=== PATIENT | female | born 1985 | race Two or more races ===

== ENCOUNTER → 2019-12-15 10:08 | Outpatient (BNVA) | payer OTHER, SELFPAY | PROVIDERS: Visit Provider Obstetrics & Gynecology | DX: Z30.432 Encounter for removal of intrauterine contraceptive device (principal) | CPT/HCPCS: 11982; 11983; 81025 ==

== ENCOUNTER 2020-04-28 19:08 | Emergency (ER) | payer OTHER, SELFPAY ==
[2020-04-28 19:13] VITALS: BP 138/91; PULSE 88; RESP 16; TEMP 36.8; O2SAT 98; BMI 28.8
[2020-04-28 20:00] VITALS: BP 127/82; PULSE 87; RESP 17; TEMP 36.9; O2SAT 99
--- NOTE | 2020-04-28 20:21 | ED.FEMALEGU ---
HPI - Female Genitourinary General Chief complaint: Vaginal Bleeding Stated complaint: Vaginal bleeding Time Seen by Provider: 04/28/20 20:10 Source: patient Mode of arrival: ambulatory Limitations: language barrier History of Present Illness HPI Narrative: 35-year-old female with past medical history of ectopic presents with abnormal vaginal bleeding and lower abdominal cramping consistent with prior ectopic. She does have a Nexplanon, stated the bleeding started several days ago, she has been going through several tampons and pads per hour over the past 2 days. She does not report any dizziness, loss of balance, chest pain or pressure, palpitations, shortness of breath, diaphoresis, fevers, chills, or edema. She does not report any trauma, or sexual assault. States to be in a monogamous healthy relationship with her and has a 3-year-old child. MD elicited complaint: vaginal bleeding and pelvic pain Pertinent past history: ectopic Onset (ago): day(s) Location of symptoms: suprapubic Severity: moderate Severity scale (1-10): 7 Quality of pain: cramping and aching Consistency: intermittent Vaginal discharge: none Vaginal bleeding: heavy, dark red and clots Associated symptoms: denies other symptoms Treatment prior to arrival: none Sexual activity: Yes Patient : No Related Data : 2 Para: 1 Home Medications Medication Instructions Recorded Confirmed etonogestrel 68 mg subdermal SUBDERMAL 12/15/19 implant Allergies Allergy/AdvReac Type Severity Reaction Status Date / Time No Known Allergies Allergy Verified 04/28/20 19:13 Review of Systems Review of Systems: Constitutional: No Fever, No Chills ENT/Mouth: No sore throat, No Rhinorrhea Eyes: No Eye Pain, No Redness Cardiovascular: No Chest Pain, No SOB Respiratory: No Cough, No Sputum, No Wheezing Gastrointestinal: positive Nausea, No Vomiting, No Diarrhea, positive abdominal pain, Genitourinary: positive irregular bleeding, No Dysuria, No Urinary Frequency, positive pelvic pain Musculoskeletal: No Myalgias Skin: No rash Neuro: No Weakness, No Headache Psych: No Anxiety/Panic, No Depression Heme/Lymph: No bruising, No Lymphadenopathy Endocrine: No Polyuria, No Polydipsia Yes all other systems are reviewed and are negative PMFSH Past Medical History Medical History Anemia during Gestational diabetes with history of ectopic Surgical History History of : 2 Para: 1 Social History Social History Alcohol intake: never Smoking Status: Never smoker Advance Directives: No Advance Directives Information Provided: Yes Sexual orientation: Straight/Heterosexual Gender identity: female Physical Exam Vital Signs: Vital Signs: Last Vital Signs Temp 98.2 F 04/28/20 22:00 Pulse 87 04/28/20 22:00 Resp 16 04/28/20 22:00 BP 133/88 04/28/20 22:00 Pulse Ox 99 04/28/20 22:00 Body Mass Index 28.8 Appearance: Alert. Oriented X3. No acute distress. Eyes: Pupils equal, round and reactive to light. ENT: Pharynx normal. Neck: Normal inspection. Neck supple. CVS: Normal heart rate and rhythm. Pulses normal. Respiratory: No respiratory distress. Breath sounds normal. Abdomen: Soft and nontender. Skin: Skin warm and dry. Normal skin color. Normal skin turgor. Extremities: No lower extremity edema. Neuro: No motor deficit. No sensory deficit. : General: Yes Bimanual renal exam normal bilaterally External Female Exam: normal external appearance and normal appearance of the urethra Speculum Exam - Vagina: normal appearance of the vagina and normal palpation Speculum Exam - Cervix: normal appearance of the cervix, normal palpation and nontender Bimanual exam- vagina & uterus: normal bimanual exam, normal palpation, consistency normal, normal palpation, uterine mobility normal, No Cervical tenderness present, tender and no cervical motion tenderness Bimanual Exam- Adnexa, other: normal adnexae, no masses and No adnexal tenderness Course Course Course Narrative: 35-year-old female presents with abnormal vaginal bleeding. Has a history of ectopic and her presentation feels quite similar to that prior experience. Plan of care is for CBC, Chem 7, urinalysis and test. 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 Os appears nulliparous as patient did have a . Plan of care is to discharge home and have patient follow-up with her hat sizer or provider that prescribed to the Nexplanon as she may need alternative control method. local company hazmat driver utilized for all correspondence, Google translate utilized for discharge instructions. MDM - Female Genitourinary MDM Narrative Medical decision making narrative: Dysfunctional uterine bleeding, ectopic Differential Diagnosis Differential diagnosis: Likely cervicitis and dysmenorrhea Medical Records Attestation: I reviewed the patient's medical records. Lab Data Attestation: I reviewed the patient's lab results. Result diagrams: 04/28/20 20:48 04/28/20 20:48 Labs: Lab Results 04/28/20 04/28/20 04/28/20 Range/Units 20:48 20:48 20:48 WBC 10.2 (4.8-10.8) X10*3/uL RBC 4.51 (4.20-5.50) X10*6/uL Hgb 13.0 (12.0-16.0) g/dl Hct 39.8 (37-47) % MCV 88.2 (80-98) fL MCH 28.8 (27.0-33.0) pg MCHC 32.7 (31.0-35.0) g/dl RDW 13.3 (11.0-16.0) % Plt Count 315 (160-400) X10*3/uL MPV 11.1 (9.4-12.3) fL Immature Gran % (Auto) 0.2 (0.0-0.4) % Neut % (Auto) 57.0 (45-73) % Lymph % (Auto) 33.8 (20-40) % [place] % (Auto) 6.4 (2-11) % Eos % (Auto) 2.2 (0-4) % Baso % (Auto) 0.4 (0-2) % Lymph # (Auto) 3.4 (1.2-4.9) X10*3/uL [place] # (Auto) 0.7 (0.1-1.2) X10*3/uL Eos # (Auto) 0.2 (0.0-0.4) X10*3/uL Baso # (Auto) 0.0 (0.0-0.2) X10*3/uL Abs Immat Gran (auto) 0.02 (0.00-0.03) X10*3/uL Absolute Neuts (auto) 5.8 (2.0-8.3) X10*3/uL Absolute Nucleated RBC 0.000 (0.0-0.012) X10*3/uL Nucleated RBC % (auto) 0.0 (0.0-0.2) /100WBC Sodium 137 (135-145) mmol/L Potassium 3.7 (3.3-5.1) mmol/L Chloride 105 (96-108) mmol/L Carbon Dioxide 25 (22-29) mmol/L Anion Gap 11 L (12-20) BUN 13 (9-16) mg/dL Creatinine 0.74 (0.5-1.4) mg/dL Estim Creat Clear Calc 92.7 Estimated GFR > 60 Random Glucose 110 (60-115) mg/dL Calcium 9.2 (8.4-10.2) mg/dL Urine Color YELLOW Urine Appearance CLEAR Urine pH 6.0 (5.0-8.0) Ur Specific [place] 1.020 (1.005-1.025) Urine Protein NEG (NEG-TRACE) MG/DL Urine Glucose (UA) NEG (NEG) MG/DL Urine Ketones NEG (NEG) MG/DL Urine Blood 3+ H (NEG) Urine Nitrite NEG (NEG) Ur Leukocyte Esterase NEG (NEG) Urine RBC 5-9 H (0) /HPF Urine WBC 0 (0-4) /HPF Ur Squamous Epith Cells 1+ /LPF Urine Bacteria 1+ /LPF Urine Test (NEGATIVE) 04/28/20 Range/Units 20:48 WBC (4.8-10.8) X10*3/uL RBC (4.20-5.50) X10*6/uL Hgb (12.0-16.0) g/dl Hct (37-47) % MCV (80-98) fL MCH (27.0-33.0) pg MCHC (31.0-35.0) g/dl RDW (11.0-16.0) % Plt Count (160-400) X10*3/uL MPV (9.4-12.3) fL Immature Gran % (Auto) (0.0-0.4) % Neut % (Auto) (45-73) % Lymph % (Auto) (20-40) % [place] % (Auto) (2-11) % Eos % (Auto) (0-4) % Baso % (Auto) (0-2) % Lymph # (Auto) (1.2-4.9) X10*3/uL [place] # (Auto) (0.1-1.2) X10*3/uL Eos # (Auto) (0.0-0.4) X10*3/uL Baso # (Auto) (0.0-0.2) X10*3/uL Abs Immat Gran (auto) (0.00-0.03) X10*3/uL Absolute Neuts (auto) (2.0-8.3) X10*3/uL Absolute Nucleated RBC (0.0-0.012) X10*3/uL Nucleated RBC % (auto) (0.0-0.2) /100WBC Sodium (135-145) mmol/L Potassium (3.3-5.1) mmol/L Chloride (96-108) mmol/L Carbon Dioxide (22-29) mmol/L Anion Gap (12-20) BUN (9-16) mg/dL Creatinine (0.5-1.4) mg/dL Estim Creat Clear Calc Estimated GFR Random Glucose (60-115) mg/dL Calcium (8.4-10.2) mg/dL Urine Color Urine Appearance Urine pH (5.0-8.0) Ur Specific [place] (1.005-1.025) Urine Protein (NEG-TRACE) MG/DL Urine Glucose (UA) (NEG) MG/DL Urine Ketones (NEG) MG/DL Urine Blood (NEG) Urine Nitrite (NEG) Ur Leukocyte Esterase (NEG) Urine RBC (0) /HPF Urine WBC (0-4) /HPF Ur Squamous Epith Cells /LPF Urine Bacteria /LPF Urine Test NEGATIVE (NEGATIVE) Discharge Plan Discharge Clinical Impression: Vaginal bleeding, Dysfunctional uterine bleeding Patient Disposition: Home, Self-Care Instructions: Dysfunctional Uterine Bleeding (ED) Additional Instructions: Te evaluaron para detectar sangrado vaginal anormal. La prueba de embarazo es negativa, el examen p?lvico fue normal. Por favor, haley un seguimiento con OBGYN o quien recet? el Nexplanon para un mayor trabajo. Jonathan por elegir triny departamento de emergencias para rangel evaluaci?n. Por favor, haley un seguimiento con el m?dico de atenci?n primaria seg?n sea necesario. Regrese al servicio de emergencias para cualquier s?ntoma nuevo, preocupante o que empeore. You were evaluated for abnormal vaginal bleeding. Your test is negative, pelvic exam was normal. Please follow-up with OBGYN or whoever prescribed the Nexplanon for further workup. Thank you for choosing this emergency department for evaluation. Please follow-up with primary care physician as needed. Return to the emergency department for any new, concerning, or worsening symptoms. Prescriptions: No Action Nexplanon 68 mg implant subdermal RF: 0 Stand Alone Forms: Work/School Release
[2020-04-28 20:56] LABS: MANUAL DIFF FLAG NO
--- NOTE | 2020-04-28 20:57 | PC.NURSE ---
PT PRESENTS WITH REPORTS OF BRIGHT RED VAGINAL BLEEDING AND PELVIC CRAMPING BEGINNING TODAY. HAS NEXPLANON IMPLANTED. DENIES N/V/D. DENIES ACCOMPANYING SYMPTOMS.
[2020-04-28 20:59] LABS: Appearance Urine CLEAR; Color Urine YELLOW; Glucose Urine UA NEG (NEG); Leukocyte Esterase Urine NEG (NEG); Nitrite Urine NEG (NEG); Urine Blood 3+ (NEG); Urine Ketones NEG (NEG); Urine Protein NEG (NEG-TRACE)
[2020-04-28 21:00] LABS: Basophils Percent Auto 0.4 % (0-2); Eosinophils Absolute Auto 0.2 X10*3/uL (0.0-0.4); Eosinophils Percent Auto 2.2 % (0-4); Hematocrit 39.8 % (37-47); Imm Gran Abs Auto 0.02 X10*3/uL (0.00-0.03); Imm Gran Pct Auto 0.2 % (0.0-0.4); Lymphocytes Absolute Auto 3.4 X10*3/uL (1.2-4.9); Lymphocytes Percent Auto 33.8 % (20-40); Mean Corpuscular HGB Conc 32.7 g/dl (31.0-35.0); Mean Corpuscular Hemoglobin 28.8 pg (27.0-33.0); Mean Corpuscular Volume 88.2 fL (80-98); Mean Platelet Volume 11.1 fL (9.4-12.3); Monocytes Absolute Auto 0.7 X10*3/uL (0.1-1.2); Monocytes Percent Auto 6.4 % (2-11); Neutrophils Absolute Auto 5.8 X10*3/uL (2.0-8.3); Platelet Count 315 X10*3/uL (160-400); Red Blood Count 4.51 X10*6/uL (4.20-5.50); Red Cell Distribution Width 13.3 % (11.0-16.0); White Blood Count 10.2 X10*3/uL (4.8-10.8)
[2020-04-28 21:01] LABS: UPreg QC Valid YES; Urine Pregnancy NEGATIVE (NEGATIVE)
[2020-04-28 21:19] LABS: Bacteria Urine 1+ /LPF; Squamous Epithelial Cell Urine 1+ /LPF; WBC Urine 0 /HPF (0-4)
[2020-04-28 21:23] LABS: Anion Gap 11 (12-20); Blood Urea Nitrogen 13 mg/dL (9-16); Calcium 9.2 mg/dL (8.4-10.2); Carbon Dioxide 25 mmol/L (22-29); Chloride 105 mmol/L (96-108); Creatinine Clr Calc Pharmacy 92.7; Estimated Glomerular Filt Rate > 60; Glucose Random 110 mg/dL (60-115); Potassium 3.7 mmol/L (3.3-5.1); Sodium 137 mmol/L (135-145)
[2020-04-28 22:00] VITALS: BP 133/88; PULSE 87; RESP 16; TEMP 36.8; O2SAT 99
--- NOTE | 2020-04-28 22:16 | PC.NURSE ---
THIS PCT SET UP AND ASSIST VALENTINE FUCHS WITH PATIENT PELVIC EXAM
== END 2020-04-28 23:07 | disposition home or self-care (01) ==
PROVIDERS: Nurse Practitioner Family; Emergency Provider Emergency Medicine Emergency Medical Services; PCP Hospitalist
DX: N93.8 Other specified abnormal uterine and vaginal bleeding (principal); R10.2 Pelvic and perineal pain
CPT/HCPCS: 36415; 80048; 81001; 81003; 81025; 85025; 99284

== ENCOUNTER → 2020-05-02 12:50 | Outpatient (BNVA) | payer OTHER, SELFPAY | PROVIDERS: PCP Hospitalist; Visit Provider Advanced Practice Midwife | DX: Z30.432 Encounter for removal of intrauterine contraceptive device (principal); Z30.011 Encounter for initial prescription of contraceptive pills | CPT/HCPCS: 11982; 99212 ==

== ENCOUNTER 2021-03-28 10:10 | Outpatient (REF) | payer OTHER, SELFPAY ==
[2021-03-28 11:27] LABS: HCG Quantitative < 2 mIU/mL
[2021-03-28 11:37] LABS: Alanine Aminotransferase 20 U/L (0-31); Albumin Level 4.3 g/dL (3.5-5.0); Alkaline Phosphatase 51 U/L (39-117); Anion Gap 10 (12-20); Aspartate Amino Transferase 15 U/L (5-31); Bilirubin Total 0.3 mg/dL (0.0-1.0); Blood Urea Nitrogen 11 mg/dL (9-16); Calcium 9.8 mg/dL (8.4-10.2); Carbon Dioxide 26 mmol/L (22-29); Chloride 106 mmol/L (96-108); Estimated Glomerular Filt Rate > 60; Glucose Random 122 mg/dL (60-115); Lipase 26 U/L (8-78); Potassium 4.3 mmol/L (3.3-5.1); Sodium 138 mmol/L (135-145); Total Protein 7.6 g/dL (6.5-8.0)
[2021-03-28 11:40] LABS: Amylase 70 U/L (28-100)
== END 2021-03-28 10:11 | disposition home or self-care (01) ==
LOC: HO.LAB 10:10
PROVIDERS: PCP Student in an Organized Health Care Education/Training Program; Visit Provider Nurse Practitioner Family
DX: R10.32 Left lower quadrant pain (principal); N92.6 Irregular menstruation, unspecified
CPT/HCPCS: 36415; 80053; 82150; 83690; 84702

== ENCOUNTER 2022-12-03 08:35 | Outpatient (AMB) | payer OTHER, SELFPAY ==
[2022-12-03 08:41] VITALS: BP 126/84; PULSE 88; O2SAT 99; BMI 29.1
--- NOTE | 2022-12-03 08:41 | MHC.PC.OV ---
Vital Signs 12/03/22 08:41 Height 5 ft 1 in Weight 154 lb BMI 29.1 BP 126/84 Blood Pressure Location Lt brachial Position Sitting Pulse 88 Pulse Source Pulse Oximeter Temp Source Skin Pulse Oximetry (%) 99 Oxygen Delivery Method Room Air Intake Visit Reasons: possible high blood pressure Psychological Operations Officer Required: Yes Psychological Operations Officer Language: [place] Allergies No Known Allergies Allergy (Verified 12/03/22 08:59) Medication List - Last Reconciled 12/03/22 by AWAIS Mendoza fluticasone propionate 50 mcg/actuation 1 spray intranasal DAILY levonorgestrel-ethinyl estrad 0.1-20 mg-mcg (Aviane) 1 tab PO DAILY Tobacco use date assessed: 12/03/22 Dental Screening Dental Screen Date: 12/03/22 Did you have a dental visit in the last 12 months?: Yes Did you have a dental problem in the last 6 months where you did not have access to dental care?: No Was dental information given to patient?: Patient has dentist HPI possible high blood pressure HPI Details Patient is a 37-year-old female presents today for an office visit to follow-up on high blood pressure. Patient of Dr. Hartman. Patient reports that 1 month ago she did have physical exam somewhere else in her blood pressure was high, blood pressure is normal in the office today. Patient denies history of high blood pressure in the past. In addition, patient reports that prior to COVID pandemic she was seen rheumatology due to multiple joints pains, she reports possible diagnosis of fibromyalgia although this was diagnosed yet. Patient reports intermittent severe pains in her multiple joints, elbows, wrists, knees, ankles, back. She also reports muscle pains as well. Reports taking Aleve with no much improvement. Interested in rheumatology referral. Also patient has requested refill on control medications, patient will also call gynecology for an appointment in regards to control management. Patient is a [place]-speaking and Lopez was helping with interpretation. [facility] Medical History Fatigue Physical exam Anemia during with history of ectopic Gestational diabetes Surgical History History of Family History Mother Diabetes Father Gallbladder cancer Social History Housing: Apartment Alcohol intake: never Patient Tobacco Use Status: Never used Tobacco e-Cigarette/Vaping Use: Never Used Second Hand Smoke Exposure: No service: No Current occupational status: employed Current occupational exposures/hazards: No Sexual orientation: Straight/Heterosexual Gender identity: Female Cognitive needs: No Hearing needs: No Vision needs: Yes Female Reproductive History Menstrual Age of Menarche: 11 Questionnaire Thrive Questionnaire Date Thrive assessed: 03/28/21 AUDIT C Alcohol Use Questionnaire (AUDIT-C) 1. How often do you have a drink containing alcohol?: Never Total Score: 0 Score Reviewed/Action Taken: No LORNA-7 AMB Questionnaire LORNA-7 Date LORNA - 7 assessed: 06/07/21 Source: Developed by Drs. Maged Christine, Tory Rascon, Ashish Mahmood and colleagues, with an educational [email or web address] from [employer]. Review of Systems Const Denies body aches, Denies chills, Denies fever(s) and Denies headache(s) ENT Denies dizziness, Denies otalgia, Denies headache(s), Denies nasal discharge, Denies sinus pain and Denies sore throat Card Denies chest pain, Denies edema, Denies lightheadedness and Denies dyspnea Resp Denies dyspnea and Denies wheezing GI Denies abdominal pain Denies dysuria Musc Details: Intermittent numbness and tingling in legs Reports as per HPI, Denies myalgias and Reports arthralgias Skin/Breast Denies rash Neuro Denies dizziness and Denies headache(s) Aller/Immun Denies wheezing Physical exam (Primary Care) Vital Signs: Last Vital Signs Pulse 88 12/03/22 08:41 BP 126/84 12/03/22 08:41 Pulse Ox 99 12/03/22 08:41 Oxygen Delivery Method Room Air 12/03/22 08:41 BMI result Body Mass Index 29.1 Tobacco/Smoking Status: Tobacco use Status Tobacco use date assessed 12/03/22 12/03/22 08:46 Patient Tobacco Use Status Never used Tobacco 12/03/22 08:46 e-Cigarette/Vaping Use Never Used 12/03/22 08:46 Thrive Assessment: Date of Thrive Assessment Date Thrive assessed 03/28/21 12/03/22 08:46 Const General: cooperative and no acute distress Orientation/consciousness: patient oriented x3 HENMT Head: Yes normocephalic and Yes atraumatic Mouth: oropharynx normal and moist mucous membranes Throat: Yes posterior oropharynx normal Eyes General: appearance normal, both eyes and all related structures Neck Neck: Yes normal visual inspection, Yes full ROM and Yes no lymphadenopathy Resp Effort & Inspection: normal respiratory effort and able to speak in complete sentences Auscultation: clear to auscultation bilaterally, no crackles, no rales, no rhonchi and no wheezes Cardio Rate: regular rate Rhythm: regular rhythm Heart sounds: S1 normal heart sound present and S2 normal heart sound present GI Auscultation: normal bowel sounds Skin General skin exam: no rashes or lesions noted Neuro General: patient oriented x3 Gait exam (Neuro): Normal gait present Extrem General: Yes full ROM and No edema Results AMB Test Urine AMB Test Urine Negative Last Edit by CHRIS Jhaveri on 12/03/22 09:27 Results Reviewed Results Reviewed: Laboratory Last Values Tst Clinic Negative 12/03/22 09:26 Assessment and Plan Assessment & Plan (1) Polyarthralgia: Code(s): M25.50 - Pain in unspecified joint Plan: Blood work ordered Patient can try [id number] Tylenol 650 mg every 6 hours as needed for pain, she can alternate with Aleve prn Rheumatology referral for an evaluation and treatment, patient was active with rheumatology couple years ago Patient agreed with the plan Orders: Orders Complete Blood Count no Diff Today M25.50 - Pain in unspecified joint Comprehensive Met. Panel Today M25.50 - Pain in unspecified joint Vitamin B12 and Folate Today M25.50 - Pain in unspecified joint TSH reflex Free T4 Today M25.50 - Pain in unspecified joint Vitamin D 25-OH Total Today M25.50 - Pain in unspecified joint AMB HCG Urine Test Today Z30.011 - Encounter for initial prescription of contraceptive pills Referrals Rheumatology Referral M25.50 - Pain in unspecified joint Medications: Refilled levonorgestrel-ethinyl estrad 0.1-20 mg-mcg (Aviane) 1 tab PO DAILY 84 tabs 4RF Coding Level of Care Code Est Pt Level 3 (01014) Diagnoses Polyarthralgia M25.50
== END 2022-12-03 09:21 | disposition home or self-care (01) ==
PROVIDERS: PCP Internal Medicine; Visit Provider Nurse Practitioner Family
DX: M25.50 Pain in unspecified joint (principal); Z30.011 Encounter for initial prescription of contraceptive pills
CPT/HCPCS: 81025; 99213

== ENCOUNTER 2022-12-03 09:27 | Outpatient (REF) | payer OTHER, SELFPAY | END 2022-12-03 09:28 | disposition home or self-care (01) | LOC: HO.LAB 09:27 | PROVIDERS: PCP Internal Medicine; Visit Provider Nurse Practitioner Family | DX: M25.50 Pain in unspecified joint (principal); R53.83 Other fatigue | CPT/HCPCS: 36415; 80053; 82306; 82607; 82746; 84443; 85027 ==

== ENCOUNTER 2024-01-01 12:13 | Outpatient (AMB) | payer OTHER, SELFPAY ==
--- NOTE | 2024-01-01 12:28 | A.OFFPC_ITS ---
Vital Signs 01/01/24 12:29 Height 5 ft 1 in Weight 144 lb BMI 27.2 BP 122/80 Blood Pressure Location Lt brachial Position Sitting Intake Visit Reasons: annual exam Intake Note: Patient here for an Annual Physical Exam Teachers Aide Required: No Accompanied by: Self / Same As Patient Allergies No Known Allergies Allergy (Verified 01/01/24 12:40) Medication List - Last Reconciled 01/01/24 by Sindhu Hoang MD levonorgestrel-ethinyl estrad 0.1-20 mg-mcg (Aviane) 1 tab PO DAILY Tobacco use date assessed: 01/01/24 Dental Screening Dental Screen Date: 01/01/24 Did you have a dental visit in the last 12 months?: No Did you have a dental problem in the last 6 months where you did not have access to dental care?: No Was dental information given to patient?: Patient has dentist HPI HPI Comments History of Present Illness Details This is a 38-year-old female that comes for her physical exam. Mammogram done last year. Pap smear done last year and was normal as per patient. No chest pain or shortness on breath. Declines flu vaccine. Has macu lar hyperpigmented spot in abdomen most likely looks like [id number]-it-syeg spot. Will be referred to Dermatology. [facility] Medical History (Updated 01/01/24 @ 12:49 by Sindhu Hoang MD) Fatigue Physical exam Anemia during with history of ectopic Gestational diabetes Surgical History History of Family History Mother Diabetes Father Gallbladder cancer Social History Housing: Apartment Alcohol intake: never Patient Tobacco Use Status: Never used Tobacco e-Cigarette/Vaping Use: Never Used Second Hand Smoke Exposure: No service: No Current occupational status: employed Current occupational exposures/hazards: No Sexual orientation: Straight/Heterosexual Gender identity: Female Cognitive needs: No Hearing needs: No Vision needs: Yes Female Reproductive History Menstrual Age of Menarche: 11 Questionnaire PHQ-9 Over the last 2 weeks, how often have you been bothered by any of the following problems? 1. Little interest or pleasure in doing things: not at all 2. Feeling down, depressed, or hopeless: not at all 3. Trouble falling or staying asleep, or sleeping too much: not at all 4. Feeling tired or having little energy: not at all 5. Poor appetite or overeating: not at all 6. Feeling bad about yourself - or that you are a failure or have let yourself or your family down: not at all 7. Trouble concentrating on things, such as reading the newspaper or watching television: not at all 8. Moving or speaking so slowly that other people could have noticed. Or the opposite - being so fidgety or restless that you have been moving around a lot more than usual: not at all 9. Thoughts that you would be better off or of hurting yourself in some way: not at all Total score: 0 Depression Screening Interpretation: Negative Depression Screening Done: Yes 31952 - PHQ-9 Billing: Yes Source: Developed by Drs. Maged Christine, Tory Rascon, Ashish Mahmood and colleagues, with an educational kimberlee from [employer]. Thrive Questionnaire Date Thrive assessed: 01/01/24 I am a: Patient What is your living situation today?: I have a steady place to live Within the past 12 months, did the food you bought not last and you didn't have the money to get more?: Never true Within the past 12 months, did you worry whether your food would run out before you got money to buy more?: Never true Do you have trouble paying for medicines?: No Do you have trouble getting transportation to medical appointments?: No Do you have trouble paying your heating and electricity bill?: No Do you have trouble taking care of your child, family member or friend?: No Do you have trouble with day-to-day activities such as bathing, preparing meals, shopping, managing finances, etc.?: No Are you currently unemployed and looking for a job?: No Are you interested in more education?: Yes Please select the resources that you would like help with: Education Currently or been in a relationship where the following occur: No concerns reported THRIVE Score: 0 AUDIT C Alcohol Use Questionnaire (AUDIT-C) 1. How often do you have a drink containing alcohol?: Never Total Score: 0 Score Reviewed/Action Taken: No LORNA-7 AMB Questionnaire LORNA-7 Date LORNA - 7 assessed: 01/01/24 Feeling nervous, anxious, or on edge: 0 = Not at all Not being able to stop or control worryin = Not at all Worrying too much about different things: 0 = Not at all Trouble relaxin = Not at all Being so restless that it is hard to sit still: 0 = Not at all Becoming easily annoyed or irritable: 0 = Not at all Feeling afraid as if something awful might happen: 0 = Not at all Total LORNA-7 score (0-4 normal; 5-9 mild; 10-14 moderate; 15-21 severe): 0 Source: Developed by Drs. Maged Christine, Tory Rascon, Ashish Mahmood and colleagues, with an educational kimberlee from [employer]. LORNA-7 Assessment Billing LORNA-7 Assessment Tool: LORNA-7 Assessment 75164 Review of Systems Const All systems reviewed & are unremarkable except as noted in HPI and below Card Denies chest pain at rest, Denies chest pain with activity, Denies edema, Denies irregular heart rhythm, Denies claudication, Denies dyspnea, Denies dyspnea on exertion, Denies orthopnea, Denies paroxysmal nocturnal dyspnea and Denies slow heart rate Resp Denies cough, Denies dyspnea and Denies dyspnea on exertion GI Denies abdominal pain, Denies change in bowel habits, Denies excessive flatus, Denies nausea and Denies vomiting Physical exam (Primary Care) Vital Signs: Last Vital Signs BP 122/80 01/01/24 12:29 BMI result Body Mass Index 27.2 BMI Assessment/Plan discussion: High BMI High, discussed plan: lifestyle, weight reduction, dietary and physical activity Tobacco/Smoking Status: Tobacco use Status Tobacco use date assessed 01/01/24 01/01/24 12:37 Patient Tobacco Use Status Never used Tobacco 01/01/24 12:37 e-Cigarette/Vaping Use Never Used 01/01/24 12:37 PHQ-9: PHQ-9 Score PHQ-9: Total score 0 01/01/24 12:37 Depression Screening Interpretation: Negative Thrive Assessment: Date of Thrive Assessment Date Thrive assessed 01/01/24 01/01/24 12:37 Currently or been in a relationship where the following occur: No concerns reported HENMT Head: Yes normal to inspection, Yes normocephalic and Yes atraumatic Ears: external ears normal Eyes General: appearance normal, both eyes and all related structures Eyelids: Yes eyelids normal Conjunctivae: conjunctivae normal Neck Neck: Yes normal visual inspection and Yes supple Resp Effort & Inspection: normal respiratory effort Auscultation: clear to auscultation bilaterally Cardio Jugular venous distension: no JVD Rate: regular rate Rhythm: regular rhythm Heart sounds: S1 normal heart sound present and S2 normal heart sound present GI Inspection: Yes normal to inspection Palpation (GI): Soft to palpation and nontender Auscultation: normal bowel sounds Skin General skin exam: no rashes or lesions noted Neuro General: no focal motor deficits Extrem General: Yes full ROM Psych Appearance: grossly normal Office Procedures Flu Questionnaire Does the patient have a severe egg allergy?: No Immunizations Fluarix Triv [id number] (PF) 45 mcg (15 mcg x 3)/0.5 mL IM syringe Performing Provider: Sindhu Hoang MD [facility] Documented (not given) by: CHRIS Constantino on 01/01/24 12:37 Reason Not Given: Patient Refused Coding Level of Care Code Est Pt Level 3 (98215) Est Pt Prev Care 40-64y(40879) Diagnoses Physical exam Z00.00 Cafe au lait spots L81.3 Additional Codes PHQ-9 - 09516 - PHQ-9 Billing: Yes ([id number]) LORNA-7 Assessment Billing - LORNA-7 Assessment Tool: LORNA-7 Assessment 19810 ([id number]) Time Spent (min) 31 Assessment & Plan Assessment & Plan (1) Physical exam: Code(s): Z00.00 - Encounter for general adult medical examination without abnormal findings Category: Medical Plan: Repeat in a year. (2) Cafe au lait spots: Code(s): L81.3 - Cafe au lait spots Category: Medical Plan: Referred to dermatology. Orders: Orders Influenza [id number] Immunization Today Z23 - Encounter for immunization MM tomosynthesis screening BI Today Z12.31 - Encounter for screening mammogram for malignant neoplasm of breast Lipid Panel Today Z00.00 - Encounter for general adult medical examination without abnormal findings Comprehensive [place]. Panel Fast Today Z00.00 - Encounter for general adult medical examination without abnormal findings Referrals Dermatology Referral L81.3 - Cafe au lait spots
[2024-01-01 12:29] VITALS: BP 122/80; BMI 27.2
== END 2024-01-01 12:50 | disposition home or self-care (01) ==
LOC: HO.HMCH 12:14
PROVIDERS: PCP Internal Medicine; Visit Provider Internal Medicine
DX: Z00.00 Encounter for general adult medical examination without abnormal findings (principal); L81.3 Cafe au lait spots